=== PATIENT | female | born 1955 | race African-American/Black ===

== ENCOUNTER 2016-08-07 15:47 | Emergency (ER) | payer SELFPAY ==
[~2016-08-07] VITALS: Ht 160 cm; Wt 65.0 kg
[~2016-08-07 15:47] MED LIST: DOXY100T PO; GUAI100S6 PO; LISI10TA PO
[2016-08-07 15:52] VITALS: BP 192/108; PULSE 89; RESP 15; TEMP 98.7; O2SAT 100
[2016-08-07] MEDS ORDERED: HYDR25TA5 PO (16:02)
[2016-08-07] MEDS ORDERED: ENAL20TA PO (16:02)
[2016-08-07] MEDS ORDERED: AMLO5TAB2 PO (16:02)
[2016-08-07 16:30] VITALS: BP 182/101
[2016-08-07 16:52] LABS: AMPHETAMINE, URINE NEG (NEG)
[2016-08-07 16:54] LABS: BARBITURATES, URINE NEG (NEG)
[2016-08-07 16:57] LABS: COCAINE, URINE NEG (NEG)
--- NOTE | 2016-08-07 17:34 | PD ---
HPI Chief Complaint: Altered Mental Status Time Seen by Provider: 15:52 Travel History International Travel<30 days: No Contact w/Intl Traveler<30days: No Traveled to known affect area: No History of Present Illness HPI 61-year-old female states that she felt weird after she ate a cookie that someone gave her this afternoon. She states it felt like it tasted like [place] and she thought that the person made it didn't wash her hands so she spit it out. She states that she started to feel weird and have a dry mouth and the shipboard intelligence analyst got involved and there was concern that there was marijuana in the cookies. She states that they made her come here. She states that she recently just got started on blood pressure medication and she is working on getting her blood pressure under better control. She denies other concurrent complaints. PFSH Past Medical History Diminished Hearing: No Hypertension: Yes Menopausal: Yes : 1 Para: 1 Past Surgical History Cholecystectomy: Yes Social History Alcohol Use: Yes (OCCAS ON HOLIDAYS) Tobacco Use: Yes (/2 ppd) Substance Use: No Allergies-Medications (Allergen,Severity, Reaction): Coded Allergies: No Known Allergies (Verified , 08/07/16) Reported Meds & Prescriptions Reported Meds & Active Scripts Active Reported Amlodipine (Amlodipine Besylate) 5 Mg Tab 5 Mg PO DAILY Enalapril (Enalapril Maleate) 20 Mg Tab 20 Mg PO DAILY Hydrochlorothiazide 25 Mg Tab 25 Mg PO DAILY Review of Systems Except as stated in HPI: all other systems reviewed are Neg Physical Exam Narrative GENERAL: Well-nourished, well-developed patient. SKIN: Warm and dry. HEAD: Normocephalic and atraumatic. EYES: No injection or drainage. ENT: No nasal drainage noted. NECK: Supple, trachea midline. CARDIOVASCULAR: Regular rate and rhythm RESPIRATORY: Breath sounds equal bilaterally. No accessory muscle use. NEUROLOGICAL: Awake and alert. Motor and sensory grossly within normal limits. Normal speech. Data Data Last Documented VS Vital Signs Date Time Temp Pulse Resp B/P Pulse Ox O2 Delivery O2 Flow Rate FiO2 08/07/16 16:30 182/101 08/07/16 15:52 98.7 89 15 100 Orders Drug Screen, Random Urine (08/07/16 15:52) Labs Laboratory Tests Test 08/07/16 16:10 Urine Opiates Screen NEG Urine Barbiturates Screen NEG Urine Amphetamines Screen NEG Urine Benzodiazepines Screen NEG Urine Cocaine Screen NEG Urine Cannabinoids Screen POS MDM Medical Decision Making Medical Screen Exam Complete: Yes Emergency Medical Condition: Yes Medical Record Reviewed: Yes (past history confirm) Interpretation(s) Urine drug screen positive for cannabis Differential Diagnosis Hypertensive urgency, ingestion, coingestion Narrative Course Will check urine drug screen. Patient declined blood work. Patient states she will call her primary for further blood pressure medication adjustment Patient has ride that will take her home, Patient denies any new complaints and states that they are feeling better. Patient happy with care, all questions answered. Patient knows that follow up is incumbent on them and to return to the emergency room immediately if new or worsening symptoms develop. Patient given strict return precautions, vitals reviewed and are normal, agrees to further workup as an outpatient. Diagnosis Primary Impression: Adverse effect of cannabis Additional Impression: Hypertensive urgency Patient Instructions: General Instructions Additional Instructions: return as needed, follow with primary tomorrow, no driving until sober, keep blood pressure log Med/Other Pt SpecificInfo: No Change to Meds Disposition: 01 DISCHARGE HOME Condition: Stable Sherice Bhatia MD Aug 07, 2016 17:34
[2016-08-07 17:55] VITALS: BP 174/98
== END 2016-08-07 17:56 | disposition home or self-care (01) ==
LOC: PHED 15:47
DX: I16.0 Hypertensive urgency (principal); R68.2 Dry mouth, unspecified; T40.7X1A Poisoning by cannabis (derivatives), accidental (unintentional), initial encounter; F17.210 Nicotine dependence, cigarettes, uncomplicated
CPT/HCPCS: 80307; 99283